=== PATIENT | female | born 1965 | race Caucasian/White ===

== ENCOUNTER 2018-10-21 15:54 | Observation (INO) | payer OTHER ==
--- NOTE | 2018-10-21 16:04 | PDOC ---
Rapid Medical Evaluation Chief Complaint: Pain, Acute Time Seen by Provider: 10/21/18 16:02 Medical Evaluation: Allergies Allergy/AdvReac Type Severity Reaction Status Date / Time No Known Allergies Allergy Verified 05/23/16 11:05 10/21/18 16:02 I have performed a brief in person evaluation of this patient. The patient presents with the CC of: abd pain HPI: Pt is a 53 YO female who states she has had abdominal pain x 1 month. Gastric band procedure in the past. PE: Skin: Clear Lungs: Clear Heart: RRR Abd: non tender MS: Moves all extremities without difficulty Neuro: Alert and oriented Psych: Appropriate affect I have ordered the following: abd protocol Pt will proceed to the main ED for further evaluation. Discharge Disposition - Diagnosis Abdominal pain Qualifiers: Abdominal location: generalized Qualified Code(s): R10.84 - Generalized abdominal pain - Referrals - Patient Instructions - Post Discharge Activity
[2018-10-21 16:52] LABS: BASO % 1.1 % (0-2.0); EOS % 2.4 % (0-4.5); HEMATOCRIT 33.8 % (32.4-45.2); HEMOGLOBIN 11.3 GM/dL (10.7-15.3); LYMPH % 27.6 % (8-40); MCHC 33.5 g/dl (32.0-36.0); MEAN CELL VOLUME 80.4 fl (80-96); MEAN PLT VOLUME 8.6 fl (7.5-11.1); MONO % 7.4 % (3.8-10.2); NEUT % 61.5 % (42.8-82.8); PLATELET COUNT 292 K/MM3 (134-434); RDW 13.9 % (11.6-15.6); WHITE BLOOD COUNT 9.4 K/mm3 (4.0-10.0)
[2018-10-21 17:21] LABS: URINE APPEARANCE SLCLOUDY; URINE BILIRUBIN NEGATIVE (<2.0 mg/dL); URINE COLOR DKYELLOW; URINE GLUCOSE (UA) NEGATIVE (NEGATIVE); URINE KETONE NEGATIVE (NEGATIVE); URINE LEUK ESTERASE 1+ (NEGATIVE); URINE NITRITE NEGATIVE (NEGATIVE); URINE PROTEIN NEGATIVE (NEGATIVE); URINE UROBILINOGEN NEGATIVE mg/dL (0.2-1.0)
[2018-10-21 17:26] LABS: EPI CELLS MODERATE /HPF (FEW); URINE BACTERIA RARE /hpf (NONE SEEN); URINE MUCUS RARE
[2018-10-21 17:39] LABS: ALBUMIN 3.8 g/dl (3.4-5.0); ALK PHOS 92 U/L (45-117); ANION GAP 8 MMOL/L (8-16); BILIRUBIN,TOTAL 0.2 mg/dL (0.2-1); BLOOD UREA NITROGEN 25 mg/dL (7-18); CALCIUM 8.9 mg/dL (8.5-10.1); CHLORIDE 106 mmol/L (98-107); CO2 25 mmol/L (21-32); CREATININE 0.8 mg/dL (0.55-1.3); GLUCOSE,RANDOM 80 mg/dL (74-106); LIPASE 550 U/L (73-393); POTASSIUM 4.3 mmol/L (3.5-5.1); SGOT/AST 24 U/L (15-37); SGPT/ALT 24 U/L (13-61); SODIUM 140 mmol/L (136-145); TOT PROT 7.9 g/dl (6.4-8.2)
--- NOTE | 2018-10-21 17:42 | PDOC ---
Attending Attestation - HPI HPI: 10/21/18 19:14 The patient is a 53 year old female with a significant PMH of HTN, HLD, and gastric band who presents to the emergency department with abdominal pain for the past month. Patient denies any exacerbating or alleviating factors. Patient admits to intermittent nausea but no vomiting. She also admits to decreased appetite and irregular bowel movements. Patient has been on meloxicam for the past three months. Patient had an ultrasound done outpatient recently which showed gallstones. The patient denies chest pain, shortness of breath, headache and dizziness. Denies fever, chills, vomit, diarrhea and constipation. Denies dysuria, frequency, urgency and hematuria. Allergies: NKA Past surgical history: None reported. Social history: No reported alcohol, drug or cigarette use. - Physicial Exam PE: 10/21/18 19:35 ADULT PHYSICAL EXAM Constitutional: Awake, alert, oriented. No acute distress. Cardiovascular: Regular rate. Regular rhythm. S1, S2 regular. Distal pulses are 2+ and symmetric. Pulmonary/Chest: No evidence of respiratory distress. Clear to auscultation bilaterally No wheezing, rales or rhonchi. Abdominal: Soft and non-distended. (+) Mild left upper quadrant and epigastric tenderness. Back: No CVA tenderness. Musculoskeletal: No edema. No cyanosis. No clubbing. Full range of motion in all extremities. Skin: Skin is warm and dry. No petechiae. No purpura. Neurological: Alert and oriented to person, place, and time. Cranial nerves II- XII are grossly intact. Psychiatric: Good eye contact. Normal interaction, affect and behavior. <Cristy Andersen - Last Filed: 10/21/18 19:34> - Resident Resident Name: Devin Low - ED Attending Attestation I have performed the following: I have examined & evaluated the patient, The case was reviewed & discussed with the resident, I agree w/resident's findings & plan, Exceptions are as noted - Medical Decision Making 10/21/18 17:42 I, Dr. Rachel Brwon, DO, attest that this document has been prepared under my direction and personally reviewed by me in its entirety. I further attest, that it accurately reflects all work, treatment, procedures and medical decision -making performed by me. 10/21/18 19:03 a/p: 53yo female with a 1 month hx of epigastric pain -assoc with nausea -outpt ultrasound showed gallstones -labs sent from [facility] concerning for elevated lipase -will send for CT abd/pelvis to eval for pancreatitis and gallstone pancreaititis -may need MRCP if +gallstone pancreatitis -will keep npo -ivf hydration running -zofran for nausea -will monitor and reassess 10/21/18 20:[address] 10/21/18 20:[address] Coon-recommends IVF hydration, npo, trend labs including lipase will see patient in the Am resident discussed the findings with the patient who is willing to stay for further eval 10/21/18 21:50 case discussed with [facility] who accepts pt to obs <Rachel Brown - Last Filed: 10/21/18 21:50> *DC/Admit/Observation/Transfer <Cristy Andersen - Last Filed: 10/21/18 19:34> - Discharge Dispostion Decision to Admit order: Yes <Rachel Brown - Last Filed: 10/21/18 21:50> Diagnosis at time of Disposition: Symptomatic cholelithiasis, Elevated lipase Abdominal pain Qualifiers: Abdominal location: generalized Qualified Code(s): R10.84 - Generalized abdominal pain - Discharge Dispostion Condition at time of disposition: Fair - Referrals Referrals: Stefany Kearney [Primary Care Provider] - - Patient Instructions - Post Discharge Activity
--- NOTE | 2018-10-21 17:50 | PDOC ---
History of Present Illness - General Chief Complaint: Pain, Acute Stated Complaint: ABD PAIN / NAUSEA Time Seen by Provider: 10/21/18 16:02 - History of Present Illness Initial Comments: 10/21/18 17:50 53 year old woman with a history of HTN, Thalassemia (type unknown) who presents with Past History - Past Medical History Allergies/Adverse Reactions: Allergies Allergy/AdvReac Type Severity Reaction Status Date / Time No Known Allergies Allergy Verified 05/23/16 11:05 Home Medications: Ambulatory Orders Nebivolol [Bystolic -] 5 mg PO DAILY 05/23/16 COPD: No HTN: Yes Hypercholesterolemia: Yes - Surgical History Gastric Stapling: Yes (gastric banding) - Immunization History Immunization Up to Date: No - Suicide/Smoking/Psychosocial Hx Smoking History: Never smoked Have you smoked in the past 12 months: No Information on smoking cessation initiated: No Hx Alcohol Use: No Drug/Substance Use Hx: No Substance Use Type: None *Physical Exam - Vital Signs Last Vital Signs Temp Pulse Resp BP Pulse Ox 98.2 F 64 16 167/88 99 10/21/18 16:03 10/21/18 16:03 10/21/18 16:03 10/21/18 16:03 10/21/18 16:03 Moderate Sedation - Procedure Monitoring Vital Signs: Procedure Monitoring Vital Signs Temperature 98.2 F 10/21/18 16:03 Pulse Rate 64 10/21/18 16:03 Respiratory Rate 16 10/21/18 16:03 Blood Pressure 167/88 10/21/18 16:03 O2 Sat by Pulse Oximetry (%) 99 10/21/18 16:03 ED Treatment Course - LABORATORY CBC & Chemistry Diagram: 10/21/18 16:37 10/21/18 16:38 - ADDITIONAL ORDERS Additional order review: Laboratory Results 10/21/18 10/21/18 17:09 16:38 Sodium 140 Potassium 4.3 Chloride 106 Carbon Dioxide 25 Anion Gap 8 BUN 25 H Creatinine 0.8 Creat Clearance w eGFR > 60 Random Glucose 80 Calcium 8.9 Total Bilirubin 0.2 AST 24 ALT 24 Alkaline Phosphatase 92 Total Protein 7.9 Albumin 3.8 Lipase 550 H Urine Color Dkyellow Urine Appearance Slcloudy Urine pH 6.0 Ur Specific [place] 1.027 Urine Protein Negative Urine Glucose (UA) Negative Urine Ketones Negative Urine Blood Negative Urine Nitrite Negative Urine Bilirubin Negative Urine Urobilinogen Negative Ur Leukocyte Esterase 1+ H Urine WBC (Auto) 9 Urine RBC (Auto) 4 Ur Epithelial Cells Moderate Urine Bacteria Rare Urine Mucus Rare 10/21/18 16:37 RBC 4.20 MCV 80.4 MCHC 33.5 RDW 13.9 MPV 8.6 Neutrophils % 61.5 Lymphocytes % 27.6 Monocytes % 7.4 Eosinophils % 2.4 Basophils % 1.1 D *DC/Admit/Observation/Transfer Diagnosis at time of Disposition: Abdominal pain Qualifiers: Abdominal location: generalized Qualified Code(s): R10.84 - Generalized abdominal pain - Discharge Dispostion Condition at time of disposition: Stable - Referrals Referrals: Stefany Kearney [Primary Care Provider] - - Patient Instructions - Post Discharge Activity
[2018-10-21] MEDS ORDERED: ONDANSETRON 4 MG/2 ML VIAL IVPUSH ONE (18:10)
[2018-10-21] MEDS ORDERED: SODIUM CHLORIDE 0.9% 1000 ML INFUS.BAG IV ONE ×2 (18:25→18:26)
--- NOTE | 2018-10-21 18:26 | PDOC ---
History of Present Illness - General Chief Complaint: Pain, Acute Stated Complaint: ABD PAIN / NAUSEA Time Seen by Provider: 10/21/18 16:02 History Source: Patient Exam Limitations: No Limitations - History of Present Illness Initial Comments: Patient is a 53 y/o F w/ PMHx HTN, HLD, bariatric surgery ~15y/a, p/w 1 month sharp abdominal pain radiating from the left costal margin to the left inguinal and suprapubic regions, relapsing and remitting with 8/10 severity at worst, no exacerbating or alleviating factors. Additionally has recently developed nausea. Dizzy spells starting today prompted ED visit. Reports recent use of meloxicam multiple times per week for several weeks for knee pain, and combining meloxicam with ibuprofen for particularly bad pain. She has been evaluated for these symptoms at urgent care, by her PMD, and by her GI. Reports undergoing US at urgent care but not knowing the result. Reports GI recommended CT scan but she has not followed up at this time. Endorses left-sided chest pain and SOB since onset of symptoms but is not currently experiencing these symptoms. No vomiting, no diarrhea, no constipation, no dysuria. NO RENDON, f/c. 10/21/18 18:11 10/21/18 18:27 Past History - Travel Traveled outside of the country in the last 30 days: No Close contact w/someone who was outside of country & ill: No - Past Medical History Allergies/Adverse Reactions: Allergies Allergy/AdvReac Type Severity Reaction Status Date / Time No Known Allergies Allergy Verified 05/23/16 11:05 Home Medications: Ambulatory Orders Nebivolol [Bystolic -] 5 mg PO DAILY 05/23/16 COPD: No HTN: Yes Hypercholesterolemia: Yes - Surgical History Gastric Stapling: Yes (gastric banding) - Immunization History Immunization Up to Date: No - Suicide/Smoking/Psychosocial Hx Smoking History: Never smoked Have you smoked in the past 12 months: No Information on smoking cessation initiated: No Hx Alcohol Use: No Drug/Substance Use Hx: No Substance Use Type: None Review of Systems - Review of Systems Comments:: As per HPI. 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, sensory systems w/o focal deficit Psych: normal mood, normal affect Skin: warm, dry, normal turgor 10/21/18 18:29 Moderate Sedation - Procedure Monitoring Vital Signs: Procedure Monitoring Vital Signs Temperature 98.2 F 10/21/18 16:03 Pulse Rate 64 10/21/18 16:03 Respiratory Rate 16 10/21/18 16:03 Blood Pressure 167/88 10/21/18 16:03 O2 Sat by Pulse Oximetry (%) 99 10/21/18 16:03 ED Treatment Course - LABORATORY CBC & Chemistry Diagram: 10/21/18 16:37 10/21/18 16:38 - ADDITIONAL ORDERS Additional order review: Laboratory Results 10/21/18 10/21/18 17:09 16:38 Sodium 140 Potassium 4.3 Chloride 106 Carbon Dioxide 25 Anion Gap 8 BUN 25 H Creatinine 0.8 Creat Clearance w eGFR > 60 Random Glucose 80 Calcium 8.9 Total Bilirubin 0.2 AST 24 ALT 24 Alkaline Phosphatase 92 Total Protein 7.9 Albumin 3.8 Lipase 550 H Urine Color Dkyellow Urine Appearance Slcloudy Urine pH 6.0 Ur Specific [place] 1.027 Urine Protein Negative Urine Glucose (UA) Negative Urine Ketones Negative Urine Blood Negative Urine Nitrite Negative Urine Bilirubin Negative Urine Urobilinogen Negative Ur Leukocyte Esterase 1+ H Urine WBC (Auto) 9 Urine RBC (Auto) 4 Ur Epithelial Cells Moderate Urine Bacteria Rare Urine Mucus Rare 10/21/18 16:37 RBC 4.20 MCV 80.4 MCHC 33.5 RDW 13.9 MPV 8.6 Neutrophils % 61.5 Lymphocytes % 27.6 Monocytes % 7.4 Eosinophils % 2.4 Basophils % 1.1 D Medical Decision Making - Medical Decision Making Initial labs notable for lipase elevated but <3x u/l/n. Pancreatitis 2/2 gallstones, HLD, and meloxicam use (rare side effect) is possible. Basic GI labs resulted at time of encounter. Ordering CT a/p w/ contrast and lipid panel. Giving Zofran. 10/21/18 18:47 CT a/p identifies s/p gastric banding, demonstrates cholelithiasis, no evidence of pancreatitis or other acute abdominopelvic pathology. 10/21/18 20:06 D/w Dr. Coon. Most likely diagnosis is symptomatic cholelithiasis. Will make NPO , maintain IVF, repeat AM labs including lipase. If lipase increases, Pt will need MRCP. Otherwise will be considered for CCY. To be admitted for med/surg observation. 10/21/18 20:57 D/w hospitalist. Will admit. 10/21/18 21:50 *DC/Admit/Observation/Transfer Diagnosis at time of Disposition: Abdominal pain Qualifiers: Abdominal location: generalized Qualified Code(s): R10.84 - Generalized abdominal pain - Discharge Dispostion Condition at time of disposition: Stable - Referrals Referrals: Stefany Kearney [Primary Care Provider] - - Patient Instructions - Post Discharge Activity
[2018-10-21] MEDS ORDERED: ONDANSETRON 4 MG/2 ML VIAL ONE (18:48)
[2018-10-21 19:07] LABS: CHOLESTEROL 242 mg/dL (50-200); HDL CHOLESTEROL 51 mg/dL (40-60); TRIGLYCERIDES 134 mg/dL (0-150)
[2018-10-21] MEDS ORDERED: LACTATED RINGERS SOLUTION 1,000 ML/1,000 ML INFUS.BAG IV SCH (21:00)
--- NOTE | 2018-10-21 22:13 | PN ---
Teaching Attending Note Name of Resident: Margaret Drummond ATTENDING PHYSICIAN STATEMENT I saw and evaluated the patient. I reviewed the resident's note and discussed the case with the resident. I agree with the resident's findings and plan as documented. SUBJECTIVE: Patient is a 53 year old woman with PMH of HTN, HLD, bariatric surgery about 15 years ago who presents with sharp abdominal pain for 1 month. Pain radiates from the left costal margin to the left inguinal and suprapubic regions, relapsing and remitting with 8/10 severity at worst. No obvious exacerbating or alleviating factors. Recently developed nausea and dizzy spells. Reports recent use of meloxicam multiple times per week for several weeks for knee pain, and combining meloxicam with ibuprofen for particularly bad pain. She has been evaluated for these symptoms at urgent care, by her PMD, and by her GI. Reports undergoing US at urgent care but not knowing the result. Reports GI recommended CT scan but she has not followed up at this time. Endorses left-sided chest pain and SOB since onset of symptoms but is not currently experiencing these symptoms. No vomiting, diarrhea, chills, headache or dysuria. OBJECTIVE: Alert Vital Signs Period Temp Pulse Resp BP Sys/Alfonso Pulse Ox Last 24 Hr 98.2 F 64 16 167/88 99 HEENT: No Jaundice, eye redness or discharge, PERRLA, EOMI. Normocephalic, atraumatic. External ears are normal and hearing is grossly intact. No nasal discharge. Neck: Supple, nontender. No palpable adenopathy or thyromegaly. No JVD Chest: Good effort. Clear to auscultation and percussion. Heart: Regular. No S3, rub or murmur Abdomen: Not distended, soft, tender left side of abdomen and suprapubic area; no HSM. No rebound or guarding. Normoactive bowel sounds. Ext: Peripheral pulses intact. No leg edema. Skin: Warm and dry. No petechiae, rash or ecchymosis. Neuro: Alert. Oriented x3. CN 2-12 grossly intact. Sensation grossly intact in all four extremities and DTR are symmetric. Current Medications Generic Name Dose Route Start Last Admin Trade Name Freq PRN Reason Stop Dose Admin Lactated Ringer's 1,000 ml in 1,000 mls @ 100 mls/hr 10/21/18 21:00 10/21/18 21:46 Lactated Ringers Solution IV 100 mls/hr ASDIR YOBANI Administration Home Medications Medication Instructions Recorded Nebivolol [Bystolic -] 5 mg PO DAILY 05/23/16 Abnormal Lab Results 10/21/18 10/21/18 10/21/18 16:38 17:09 18:44 BUN 25 H Cholesterol 242 H Total LDL Cholesterol 164 H Lipase 550 H Ur Leukocyte Esterase 1+ H ASSESSMENT AND PLAN: 1. Abdominal pain - May be due to gall stones noted on CT scan. Will repeat UA to rule out UTI. Trend lipase and get MRCP after consultation with GI. Continue IV fluids, keep her NPO and do pain control PRN. Surgery consulted. Needs dietary and intensified drug treatment for hyperlipidemia. 2. Obesity - Will provide patient all the necessary assistance, counseling and positive reinforcement to facilitate weight loss. Consult rooming house keeper. 3. Uncontrolled Hypertension - Will restart her home antihypertensive drugs and also craft a better regimen for her to ultimately attain normotension. Nonpharmacologic measures to control hypertension like weight loss, salt restriction and exercise discussed. 4. DVT prophylaxis - Lovenox 40 mg SQ q 24 hours. 5. Advance directives - Full code
--- NOTE | 2018-10-21 23:04 | HP ---
CHIEF COMPLAINT: epigastric abdominal pain PCP: Dr. Kearney HISTORY OF PRESENT ILLNESS: 53 y/o female with PMH of HTN, HLD, presents with a one month history of epigastric/left sided abdominal pain. She states that the pain stated on , it was no associated with any nausea/vomiting/diarrhea nor was it worse after certain foods. She saw her automatic i threading machine feeder Dr. Daly who started her on Hyoscyamine .375 daily and told her to let him know how she was feeling. She was still having pain so she went to an urgent care who di an ultrasound which showed gallstones and they did labs which showed a lipase of 550 and she began feeling nauseous today so she came in. of note, she did have a stomach virus 2 weeks ago whihc lasted 2 weeks. she denies any recent travel nor has any sick contacts at home. ER course was notable for: (1) vital wnl (2) cbc/cmp wnl; lipase 550 (3) ab/pelvis CT showing cholelithiasis no cholecystitis or pancreatitis Recent Travel: denies PAST MEDICAL HISTORY: see above PAST SURGICAL HISTORY: gastric band surgery (15 years ago) Social History: Smoking:former smoker quit 27 years ago Alcohol:denies Drugs: denies Family History: HTN on both sides Allergies No Known Allergies Allergy (Verified 05/23/16 11:05) HOME MEDICATIONS: Home Medications Medication Instructions Recorded Nebivolol [Bystolic -] 5 mg PO DAILY 05/23/16 Pravastatin Sodium [Pravachol (Nf)] 40 mg PO HS 10/21/18 REVIEW OF SYSTEMS CONSTITUTIONAL: Absent: fever, chills, diaphoresis, generalized weakness, malaise, loss of appetite, weight change HEENT: Absent: rhinorrhea, nasal congestion, throat pain, throat swelling, difficulty swallowing, mouth swelling, ear pain, eye pain, visual changes CARDIOVASCULAR: Absent: chest pain, syncope, palpitations, irregular heart rate, lightheadedness , peripheral edema RESPIRATORY: Absent: cough, shortness of breath, dyspnea with exertion, orthopnea, wheezing, stridor, hemoptysis GASTROINTESTINAL: Present:abdominal pain, nausea, Absent: , diarrhea, constipation, melena, hematochezia GENITOURINARY: Absent: dysuria, frequency, urgency, hesitancy, hematuria, flank pain, genital pain MUSCULOSKELETAL: Absent: myalgia, arthralgia, joint swelling, back pain, neck pain SKIN: Absent: rash, itching, pallor HEMATOLOGIC/IMMUNOLOGIC: Absent: easy bleeding, easy bruising, lymphadenopathy, frequent infections ENDOCRINE: Absent: unexplained weight gain, unexplained weight loss, heat intolerance, cold intolerance NEUROLOGIC: Absent: headache, focal weakness or paresthesias, dizziness, unsteady gait, seizure, mental status changes, bladder or bowel incontinence PSYCHIATRIC: Absent: anxiety, depression, suicidal or homicidal ideation, hallucinations. PHYSICAL EXAMINATION Vital Signs - 24 hr 10/21/18 16:03 Temperature 98.2 F Pulse Rate 64 Respiratory 16 Rate Blood Pressure 167/88 O2 Sat by Pulse 99 Oximetry (%) GENERAL: Awake, alert, and fully oriented, in no acute distress EYES: EOMI; PEERLA; no scleral icterus NECK:no JVD, no lymphadenopathy. LUNGS: CTA B/L; no rales, rhonchi or wheezing HEART: Regular rate and rhythm, normal S1 and S2 without murmur, rub or gallop. ABDOMEN: Soft, +left-sided/suprapubic tenderness; -murphys sign; + BS in all 4 quadrants MUSCULOSKELETAL: Normal range of motion at all joints. No bony deformities or tenderness. No CVA tenderness. EXTREMITIES; warm; well-perfused, no clubbing/cyanosis or edema. NEUROLOGICAL: Cranial nerves II-XII intact. Normal speech. Normal gait. PSYCHIATRIC: Cooperative. Good eye contact. Appropriate mood and affect. SKIN: Warm, dry, normal turgor, no rashes or lesions noted, normal capillary refill. Laboratory Results - last 24 hr 10/21/18 10/21/18 10/21/18 16:37 16:38 17:09 WBC 9.4 RBC 4.20 Hgb 11.3 Hct 33.8 MCV 80.4 MCH 27.0 MCHC 33.5 RDW 13.9 Plt Count 292 MPV 8.6 Absolute Neuts (auto) 5.8 Neutrophils % 61.5 Lymphocytes % 27.6 Monocytes % 7.4 Eosinophils % 2.4 Basophils % 1.1 D Nucleated RBC % 0 Sodium 140 Potassium 4.3 Chloride 106 Carbon Dioxide 25 Anion Gap 8 BUN 25 H Creatinine 0.8 Creat Clearance w eGFR > 60 Random Glucose 80 Calcium 8.9 Total Bilirubin 0.2 AST 24 ALT 24 Alkaline Phosphatase 92 Total Protein 7.9 Albumin 3.8 Triglycerides Cholesterol Total LDL Cholesterol HDL Cholesterol Lipase 550 H Urine Color Dkyellow Urine Appearance Slcloudy Urine pH 6.0 Ur Specific [place] 1.027 Urine Protein Negative Urine Glucose (UA) Negative Urine Ketones Negative Urine Blood Negative Urine Nitrite Negative Urine Bilirubin Negative Urine Urobilinogen Negative Ur Leukocyte Esterase 1+ H Urine WBC (Auto) 9 Urine RBC (Auto) 4 Ur Epithelial Cells Moderate Urine Bacteria Rare Urine Mucus Rare 10/21/18 18:44 WBC RBC Hgb Hct MCV MCH MCHC RDW Plt Count MPV Absolute Neuts (auto) Neutrophils % Lymphocytes % Monocytes % Eosinophils % Basophils % Nucleated RBC % Sodium Potassium Chloride Carbon Dioxide Anion Gap BUN Creatinine Creat Clearance w eGFR Random Glucose Calcium Total Bilirubin AST ALT Alkaline Phosphatase Total Protein Albumin Triglycerides 134 Cholesterol 242 H Total LDL Cholesterol 164 H HDL Cholesterol 51 Lipase Urine Color Urine Appearance Urine pH Ur Specific [place] Urine Protein Urine Glucose (UA) Urine Ketones Urine Blood Urine Nitrite Urine Bilirubin Urine Urobilinogen Ur Leukocyte Esterase Urine WBC (Auto) Urine RBC (Auto) Ur Epithelial Cells Urine Bacteria Urine Mucus ASSESSMENT/PLAN: 53 y/o female with PMH of HTN, HLD, gastric band surgery 15 years ago who presents with a 1 month history of worsening epigastric/suprapubic/abdominal pain found to have cholelithiasis on ultrasound # Abdominal pain CT showing no evidence of pancreatitis or acute cholecystitis - showing evidence of cholelithiassis -trend lipase; repeat in AM -Dr Coon consulted; IVF, NPO will see patient in AM -MRCP ordered -GI consulted -given patients suprapubic tenderness; repeat U/A and send Cx #HTN -c/w bystolic 5mg -may consider adding another regimen -nurses' association counselor patients on importance of diet/exercise (low sodium etc) #HLD -c/w pravastatin 40mg F/E/N LR @100mls/hr monitor electrolytes NPO for now Problem List - Problem (1) Abdominal pain Code(s): R10.9 - UNSPECIFIED ABDOMINAL PAIN Qualifiers: Abdominal location: generalized Qualified Code(s): R10.84 - Generalized abdominal pain (2) Elevated lipase Code(s): R74.8 - ABNORMAL LEVELS OF OTHER SERUM ENZYMES (3) Symptomatic cholelithiasis Code(s): K80.20 - CALCULUS OF GALLBLADDER W/O CHOLECYSTITIS W/O OBSTRUCTION Visit type - Emergency Visit Emergency Visit: Yes ED Registration Date: 10/21/18 Care time: The patient presented to the Emergency Department on the above date and was hospitalized for further evaluation of their emergent condition. - New Patient This patient is new to me today: Yes Date on this admission: 10/21/18 - Critical Care Critical Care patient: No
[2018-10-22 03:06] VITALS: BMI 40.7
[2018-10-22] MEDS: ACETAMINOPHEN 325 MG TABLET (FP) PO PRN ×2 (03:24→15:04)
[2018-10-22 04:43] LABS: URINE APPEARANCE CLEAR; URINE BILIRUBIN NEGATIVE (<2.0 mg/dL); URINE COLOR STRAW; URINE GLUCOSE (UA) NEGATIVE (NEGATIVE); URINE KETONE NEGATIVE (NEGATIVE); URINE LEUK ESTERASE NEGATIVE (NEGATIVE); URINE NITRITE NEGATIVE (NEGATIVE); URINE PROTEIN NEGATIVE (NEGATIVE); URINE UROBILINOGEN NEGATIVE mg/dL (0.2-1.0)
[2018-10-22 07:23] LABS: BASO % 0.3 % (0-2.0); EOS % 3.9 % (0-4.5); HEMATOCRIT 31.3 % (32.4-45.2); HEMOGLOBIN 10.4 GM/dL (10.7-15.3); LYMPH % 25.3 % (8-40); MCH 26.4 pg (25.7-33.7); MCHC 33.2 g/dl (32.0-36.0); MEAN CELL VOLUME 79.5 fl (80-96); MEAN PLT VOLUME 8.5 fl (7.5-11.1); MONO % 6.6 % (3.8-10.2); NEUT % 63.9 % (42.8-82.8); PLATELET COUNT 251 K/MM3 (134-434); RBC 3.93 M/mm3 (3.60-5.2); RDW 13.8 % (11.6-15.6); WHITE BLOOD COUNT 7.6 K/mm3 (4.0-10.0)
--- NOTE | 2018-10-22 08:52 | CON.GI ---
Consult Consult Specialty:: GI Referred by:: Hospitalist Service Reason for Consultation:: Abdominal pain - History of Present Illness Chief Complaint: "I have pain on my left side when I move" History of Present Illness: 53F admitted for evaluation of left sided upper abdominal pain. She states that the pain has been occurring since 09/21/18. It is exacerbated by movement , radiates from the LUQ to left lower abdomen and is not related to meals. She denies associated vomiting / unintentional weight loss, change in bowel habits, melena, rectal bleeding, fevers/chills. The pain persisted and she felt dizzy so went to urgent care. She states that she was tld of gallstones and was sent to the hospital. Admission CT scan with IV contrast revealed cholelithiasis without acute pathology. She was recently seen bty her mold tooler Dr. Juvenal Daly in [place] who gave her hyosciamine. This did not help. Pain persists. She believes that she had an upper endoscopy 5-6 years ago that was"OK". She also states having had a colonoscopy last year that was normal. There is no family history of colorectal cancer or other GI malignancy. 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 History of Recent Travel: No Home Medications - Allergies Allergies/Adverse Reactions: Allergies Allergy/AdvReac Type Severity Reaction Status Date / Time No Known Allergies Allergy Verified 05/23/16 11:05 - Home Medications Home Medications: Ambulatory Orders Nebivolol [Bystolic -] 5 mg PO DAILY 05/23/16 Pravastatin Sodium [Pravachol (Nf)] 40 mg PO HS 10/21/18 Family Disease History - Family Disease History Family Disease History: Other: Father (Alive: HTN/CVA), Mother (Alive: HTN), Sister (3, healthy), Son (1, healthy), Daughter (1, healthy) Other Family History: No family history of colorectal cancer or other GI malignancy Review of Systems - Review of Systems Constitutional: denies: Chills, Fever, Unintentional Wgt. Loss Cardiovascular: denies: Chest Pain, Shortness of Breath Gastrointestinal: reports: Abdominal Pain, Nausea. denies: Bloating, Constipation, Diarrhea, Dysphagia, Indigestion, Melena, Rectal Bleeding, Vomiting Musculoskeletal: denies: Back Pain Physical Exam-GI Vital Signs: Vital Signs Temperature 97.9 F 10/22/18 07:00 Pulse Rate 62 10/22/18 07:00 Respiratory Rate 18 10/22/18 07:00 Blood Pressure 118/61 10/22/18 07:00 O2 Sat by Pulse Oximetry (%) 98 10/22/18 01:42 Constitutional: Yes: Calm Eyes: No: Sclera Icterus Cardiovascular: Yes: Regular Rate and Rhythm. No: Murmur Respiratory: Yes: CTA Bilaterally Gastrointestinal Inspection: Yes: Scars (trochar scars with palpable lap band port in mid upper abdomen). No: Distention ...Auscultate: Yes: Normoactive Bowel Sounds ...Palpate: Yes: Tenderness (LUQ>epigastric). No: Guarding, Hepatomegaly, Splenomegaly, Tenderness, Rebound ...Percussion: No: Tympanitic ...Rectal Exam: Yes: Other (Emergency Planner present: No external lesions, no mases, formed light brown stool in rectal vault, guaiac negative.) Edema: No (No LE edema) Neurological: Yes: Alert Labs: CBC, BMP 10/22/18 06:30 10/21/18 16:38 Laboratory Tests 10/21/18 16:38 Lipase 550 H Imaging - Results Cat Scan: Report Reviewed Problem List - Problems (1) Abdominal pain Assessment/Plan: Pain not typical of cholecystitis or pancreatitis and lipase of 550 not diagnostic of pancreatitis. Given description of pain, ? if the pain is somatic / musculoskeletal in nature as opposed to visceral. There was mild epigastric TTP noted on my exam. To exclude Lap Band Complication such as lap band erosion into the gastric wall , along with alternate pathologies such as PUD, gastritis, we discussed upper endoscopy for further intraluminal evaluation. We discussed potential risks of the procedure like but not limited to bleeding, perforation requiring surgery to repair, infection and sedation medication effects all of which could be potentially life threatening. She has agreed to the procedure For now: NPO IV Hydration Code(s): R10.9 - UNSPECIFIED ABDOMINAL PAIN Qualifiers: Abdominal location: generalized Qualified Code(s): R10.84 - Generalized abdominal pain
[2018-10-22 09:52] LABS: ALBUMIN 3.2 g/dl (3.4-5.0); ALK PHOS 76 U/L (45-117); ANION GAP 7 MMOL/L (8-16); BILIRUBIN,TOTAL 0.5 mg/dL (0.2-1); BLOOD UREA NITROGEN 13 mg/dL (7-18); CALCIUM 8.4 mg/dL (8.5-10.1); CHLORIDE 110 mmol/L (98-107); CO2 26 mmol/L (21-32); CREATININE 0.7 mg/dL (0.55-1.3); GLUCOSE,RANDOM 77 mg/dL (74-106); LIPASE 253 U/L (73-393); MAGNESIUM 2.2 mg/dL (1.8-2.4); PHOSPHOROUS 3.5 mg/dL (2.5-4.9); POTASSIUM 4.2 mmol/L (3.5-5.1); SGOT/AST 16 U/L (15-37); SGPT/ALT 22 U/L (13-61); SODIUM 143 mmol/L (136-145); TOT PROT 6.7 g/dl (6.4-8.2)
[2018-10-22] MEDS: ENOXAPARIN NA (PORCINE) 40 MG/0.4 ML DISP.SYRIN SQ SCH (10:34)
--- NOTE | 2018-10-22 13:48 | PN ---
Progress Note (short form) - Note Progress Note: EGD complete. Report placed in procedural section of physical chart and will be scanned into [employer]. Problem List - Problems (1) Abdominal pain Code(s): R10.9 - UNSPECIFIED ABDOMINAL PAIN Qualifiers: Abdominal location: generalized Qualified Code(s): R10.84 - Generalized abdominal pain
--- NOTE | 2018-10-22 14:16 | EKG ---
Test Reason : Blood Pressure : / mmHG Vent. Rate : 070 BPM Atrial Rate : 070 BPM P-R Int : 158 ms QRS Dur : 088 ms QT Int : 376 ms P-R-T Axes : 049 059 034 degrees QTc Int : 406 ms NORMAL SINUS RHYTHM NORMAL ECG WHEN COMPARED WITH ECG OF 30-MAR-2018 16:32, NO SIGNIFICANT CHANGE WAS FOUND Confirmed by RICKEY OHARA MD ([id number]) on 10/22/2018 2:15:53 PM Referred By: Confirmed By:RICKEY OHARA MD
[2018-10-22] MEDS ORDERED: ACETAMINOPHEN 325 MG TABLET (FP) PO ONE (15:08)
[2018-10-22] MEDS: NEBIVOLOL 5 MG TABLET (FP) PO SCH (15:34)
[2018-10-22] MEDS ORDERED: LACTATED RINGERS SOLUTION 1,000 ML/1,000 ML INFUS.BAG IV SCH (15:45)
--- NOTE | 2018-10-22 15:48 | PN ---
Physical Exam: SUBJECTIVE: Patient seen and examined at bedside this morning. Patient is a 53 year old female with past medical history of HTN and HLD, presented with intermittent episodes of epigastric/LUQ pain for 1 month. Patient experienced nausea and dizziness yesterday and decided to go to the ED. Last New Year's [place], patient experienced severe suprapubic, LLQ and LUQ pain that she went to the urgent care where ultrasound was done and she was noted to have gallstones. Patient followed up with her GI doctor, and started her on Hyoscyamine. Today patient still reports LUQ pain. Denies nausea, vomiting, fever, chills, headache, dizziness, chest pain, SOB, diarrhea, constipation, urinary symptoms. OBJECTIVE: Vital Signs Temperature 98.1 F 10/22/18 15:36 Pulse Rate 67 10/22/18 15:36 Respiratory Rate 18 10/22/18 15:36 Blood Pressure 145/67 10/22/18 15:36 O2 Sat by Pulse Oximetry (%) 100 10/22/18 15:38 GENERAL: The patient is awake, alert, and fully oriented, in no acute distress. HEAD: Normal with no signs of trauma. EYES: PERRLA, EOMI, sclera anicteric, conjunctiva clear. ENT: Ears normal, nares patent, oropharynx clear without exudates, moist mucous membranes. NECK: Trachea midline, full range of motion, supple. LUNGS: Breath sounds equal, clear to auscultation bilaterally. HEART: Regular rate and rhythm, S1, S2 without murmur, rub or gallop. ABDOMEN: Soft, +epigastric/LUQ tenderness, nondistended, normoactive bowel sounds, no guarding, no rebound, no hepatosplenomegaly, no masses. EXTREMITIES: 2+ pulses, warm, well-perfused, no edema. NEUROLOGICAL: Cranial nerves II through XII grossly intact. Normal speech, gait not observed. PSYCH: Normal mood, normal affect. SKIN: Warm, dry, normal turgor, no rashes or lesions noted Laboratory Results - last 24 hr 10/21/18 10/21/18 10/21/18 16:37 16:38 17:09 WBC 9.4 RBC 4.20 Hgb 11.3 Hct 33.8 MCV 80.4 MCH 27.0 MCHC 33.5 RDW 13.9 Plt Count 292 MPV 8.6 Absolute Neuts (auto) 5.8 Neutrophils % 61.5 Lymphocytes % 27.6 Monocytes % 7.4 Eosinophils % 2.4 Basophils % 1.1 D Nucleated RBC % 0 Sodium 140 Potassium 4.3 Chloride 106 Carbon Dioxide 25 Anion Gap 8 BUN 25 H Creatinine 0.8 Creat Clearance w eGFR > 60 Random Glucose 80 Calcium 8.9 Phosphorus Magnesium Total Bilirubin 0.2 AST 24 ALT 24 Alkaline Phosphatase 92 Total Protein 7.9 Albumin 3.8 Triglycerides Cholesterol Total LDL Cholesterol HDL Cholesterol Lipase 550 H Urine Color Dkyellow Urine Appearance Slcloudy Urine pH 6.0 Ur Specific [place] 1.027 Urine Protein Negative Urine Glucose (UA) Negative Urine Ketones Negative Urine Blood Negative Urine Nitrite Negative Urine Bilirubin Negative Urine Urobilinogen Negative Ur Leukocyte Esterase 1+ H Urine WBC (Auto) 9 Urine RBC (Auto) 4 Ur Epithelial Cells Moderate Urine Bacteria Rare Urine Mucus Rare Urine HCG, Qual 10/21/18 10/22/18 10/22/18 18:44 04:25 06:30 WBC 7.6 RBC 3.93 Hgb 10.4 L Hct 31.3 L MCV 79.5 L MCH 26.4 MCHC 33.2 RDW 13.8 Plt Count 251 MPV 8.5 Absolute Neuts (auto) 4.8 Neutrophils % 63.9 Lymphocytes % 25.3 Monocytes % 6.6 Eosinophils % 3.9 Basophils % 0.3 Nucleated RBC % 0 Sodium Potassium Chloride Carbon Dioxide Anion Gap BUN Creatinine Creat Clearance w eGFR Random Glucose Calcium Phosphorus Magnesium Total Bilirubin AST ALT Alkaline Phosphatase Total Protein Albumin Triglycerides 134 Cholesterol 242 H Total LDL Cholesterol 164 H HDL Cholesterol 51 Lipase Urine Color Straw Urine Appearance Clear Urine pH 7.0 Ur Specific [place] 1.009 L Urine Protein Negative Urine Glucose (UA) Negative Urine Ketones Negative Urine Blood Negative Urine Nitrite Negative Urine Bilirubin Negative Urine Urobilinogen Negative Ur Leukocyte Esterase Negative Urine WBC (Auto) Urine RBC (Auto) Ur Epithelial Cells Urine Bacteria Urine Mucus Urine HCG, Qual 10/22/18 10/22/18 06:30 11:25 WBC RBC Hgb Hct MCV MCH MCHC RDW Plt Count MPV Absolute Neuts (auto) Neutrophils % Lymphocytes % Monocytes % Eosinophils % Basophils % Nucleated RBC % Sodium 143 Potassium 4.2 Chloride 110 H Carbon Dioxide 26 Anion Gap 7 L BUN 13 Creatinine 0.7 Creat Clearance w eGFR > 60 Random Glucose 77 Calcium 8.4 L Phosphorus 3.5 Magnesium 2.2 Total Bilirubin 0.5 AST 16 ALT 22 Alkaline Phosphatase 76 Total Protein 6.7 Albumin 3.2 L Triglycerides Cholesterol Total LDL Cholesterol HDL Cholesterol Lipase 253 Urine Color Urine Appearance Urine pH Ur Specific [place] Urine Protein Urine Glucose (UA) Urine Ketones Urine Blood Urine Nitrite Urine Bilirubin Urine Urobilinogen Ur Leukocyte Esterase Urine WBC (Auto) Urine RBC (Auto) Ur Epithelial Cells Urine Bacteria Urine Mucus Urine HCG, Qual Negative Active Medications Generic Name Dose Route Start Last Admin Trade Name Freq PRN Reason Stop Dose Admin Acetaminophen 650 mg 10/22/18 03:15 10/22/18 15:04 Tylenol - PO 650 mg Q4H PRN Administration PAIN LEVEL 1-5 Atorvastatin Calcium 10 mg 10/22/18 22:00 Lipitor - PO HS YOBANI Enoxaparin Sodium 40 mg 10/22/18 10:00 10/22/18 10:34 Lovenox - SQ Not Given DAILY YOBANI Lactated Ringer's 1,000 ml in 1,000 mls @ 75 mls/hr 10/22/18 15:45 Lactated Ringers Solution IV ASDIR YOBANI Nebivolol 5 mg 10/22/18 10:00 10/22/18 15:34 Bystolic - PO 5 mg DAILY YOBANI Administration ASSESSMENT/PLAN: Patient is a 53 year old female with past medical history of HTN and HLD, presented with intermittent episodes of epigastric/LUQ pain for 1 month. #Abdominal pain -CT AP: Cholelithiasis. No pancreatitis or acute pathology within abdomen/ pelvis. -GI (Dr. Feliciano) consulted. Recommendations appreciated. -EGD done for further intraluminal evaluation: -Esophagus, Stomach and duodenal mucosa appeared normal. Biopsy done. -Avoid NSAIDs for 3 days. -Follow-up with bariatric surgeon. -Advance diet. -Surgery (Dr. Coon) consulted. -Lipase trended down 550 --> 253. #Hypertension -Continue home Bystolic 5mg daily. -will continue to monitor BP. #Hyperlipidemia -Continue Pravastatin 40mg daily. -Lipid panel: TG 134, Chol 242, LDL 164, HDL 51 #FEN -IV LR @100cc/hr -Electrolytes wnl, routine bmp monitoring -Sodium/Cholesterol restricted diet. #Prophylaxis -Lovenox 40mg sq daily. #Disposition -full code -med surg Visit type - Emergency Visit Emergency Visit: Yes ED Registration Date: 10/21/18 Care time: The patient presented to the Emergency Department on the above date and was hospitalized for further evaluation of their emergent condition. - New Patient This patient is new to me today: Yes Date on this admission: 10/22/18 - Critical Care Critical Care patient: No
--- NOTE | 2018-10-22 18:12 | PN ---
Teaching Attending Note Name of Resident: Kassy Lindo ATTENDING PHYSICIAN STATEMENT I saw and evaluated the patient. I reviewed the resident's note and discussed the case with the resident. I agree with the resident's findings and plan as documented. SUBJECTIVE: Patient is comfortable with no acute distress. OBJECTIVE: Vital Signs Temperature 98.5 F 10/22/18 17:41 Pulse Rate 65 10/22/18 17:41 Respiratory Rate 18 10/22/18 17:41 Blood Pressure 142/69 10/22/18 17:41 O2 Sat by Pulse Oximetry (%) 100 10/22/18 15:38 GENERAL: The patient is awake, alert, and fully oriented, in no acute distress. HEAD: Normal with no signs of trauma. EYES: PERRLA, EOMI, sclera anicteric, conjunctiva clear. ENT: Ears normal, nares patent, oropharynx clear without exudates, moist mucous membranes. NECK: Trachea midline, full range of motion, supple. LUNGS: Breath sounds equal, clear to auscultation bilaterally. HEART: Regular rate and rhythm, S1, S2 without murmur, rub or gallop. ABDOMEN: Soft, +epigastric/LUQ tenderness, nondistended, normoactive bowel sounds, no masses appreciated. EXTREMITIES: 2+ pulses, warm, well-perfused, no edema. NEUROLOGICAL: Cranial nerves II through XII grossly intact. Normal speech, gait not observed. PSYCH: Normal mood, normal affect. SKIN: Warm, dry, normal turgor, no rashes or lesions noted CBCD WBC 7.6 K/mm3 (4.0-10.0) 10/22/18 06:30 RBC 3.93 M/mm3 (3.60-5.2) 10/22/18 06:30 Hgb 10.4 GM/dL (10.7-15.3) L 10/22/18 06:30 Hct 31.3 % (32.4-45.2) L 10/22/18 06:30 MCV 79.5 fl (80-96) L 10/22/18 06:30 MCHC 33.2 g/dl (32.0-36.0) 10/22/18 06:30 RDW 13.8 % (11.6-15.6) 10/22/18 06:30 Plt Count 251 K/MM3 (134-434) 10/22/18 06:30 MPV 8.5 fl (7.5-11.1) 10/22/18 06:30 CMP Sodium 143 mmol/L (136-145) 10/22/18 06:30 Potassium 4.2 mmol/L (3.5-5.1) 10/22/18 06:30 Chloride 110 mmol/L (98-107) H 10/22/18 06:30 Carbon Dioxide 26 mmol/L (21-32) 10/22/18 06:30 Anion Gap 7 MMOL/L (8-16) L 10/22/18 06:30 BUN 13 mg/dL (7-18) 10/22/18 06:30 Creatinine 0.7 mg/dL (0.55-1.3) 10/22/18 06:30 Creat Clearance w eGFR > 60 (>60) 10/22/18 06:30 Random Glucose 77 mg/dL (74-106) 10/22/18 06:30 Calcium 8.4 mg/dL (8.5-10.1) L 10/22/18 06:30 Total Bilirubin 0.5 mg/dL (0.2-1) 10/22/18 06:30 AST 16 U/L (15-37) 10/22/18 06:30 ALT 22 U/L (13-61) 10/22/18 06:30 Alkaline Phosphatase 76 U/L (45-117) 10/22/18 06:30 Total Protein 6.7 g/dl (6.4-8.2) 10/22/18 06:30 Albumin 3.2 g/dl (3.4-5.0) L 10/22/18 06:30 Current Medications Generic Name Dose Route Start Last Admin Trade Name Freq PRN Reason Stop Dose Admin Acetaminophen 650 mg 10/22/18 15:49 Tylenol - PO Q6H PRN PAIN OR FEVER Atorvastatin Calcium 10 mg 10/22/18 22:00 Lipitor - PO HS YOBANI Enoxaparin Sodium 40 mg 10/22/18 10:00 10/22/18 10:34 Lovenox - SQ Not Given DAILY YOBANI Lactated Ringer's 1,000 ml in 1,000 mls @ 100 mls/hr 10/22/18 16:38 Lactated Ringers Solution IV ASDIR YOBANI Nebivolol 5 mg 10/22/18 10:00 10/22/18 15:34 Bystolic - PO 5 mg DAILY [facility] Administration Home Medications Medication Instructions Recorded Nebivolol [Bystolic -] 5 mg PO DAILY 05/23/16 Pravastatin Sodium [Pravachol (Nf)] 40 mg PO HS 10/21/18 CT AP: Cholelithiasis. No pancreatitis or acute pathology within abdomen/pelvis. ASSESSMENT AND PLAN: Patient is a 53 year old female with PMHx of HTN and HLD, presented with intermittent episodes of epigastric/LUQ pain x 1 month. #Abdominal pain: s/p EGD done for further intraluminal evaluation, Esophagus, Stomach and duodenal mucosa appeared normal. Biopsy pending. GI (Dr. Feliciano) consulted. Recommendations appreciated. Avoid NSAIDs for 3 days. Surgery (Dr. Coon) consulted. Lipase trended down 550 --> 253. #Hypertension continue Bystolic 5mg daily. monitor BP #Hyperlipidemia: continue Pravastatin 40mg daily. DVt px: Lovenox 40mg sq
[2018-10-22] MEDS ORDERED: ACETAMINOPHEN/CAFFEINE/BUTALBITAL 1 TAB PO ONE ×2 (18:35→19:00)
[2018-10-22] MEDS: LACTATED RINGERS SOLUTION 1,000 ML/1,000 ML INFUS.BAG IV SCH ×2 (18:56→22:54)
--- NOTE | 2018-10-22 19:01 | CONSULT ---
Consult Consult Specialty:: General Surgery Referred by:: Rachel Brown Reason for Consultation:: elevated lipase, epigastric and LUQ pain - History of Present Illness Chief Complaint: left-sided abdominal pain History of Present Illness: 53yo obese F with HTN, HLD, thalassemia, s/p lap band 15 yrs ago with no followup in recent years, began having lower abdominal pain about a month ago. She initially was diagnosed with ovarian cyst issues, and saw INVENTORY CONTROL MANAGER, who did not think her pain was related to a INVENTORY CONTROL MANAGER source. She reports generally daily BMs, though sometimes a little hard to get out, except less in the last 3 days and none yesterday. No urinary symptoms. She does report some nausea with the pain, which then migrated to mainly the left abdomen, more upper, and also in the epigastric area. She then saw GI mid-September, who gave her medicine "to relax her intestines," and at first she thought it might be helping, but it really didn't. The pain comes and goes without provocation, and a few days ago, it was so bad she could barely walk. She went to her PMD, who sent her to urgent care, where she was told she had gallstones, and sent to ER here. CT here revealed no acute pathology, but did confirm gallstones, with no inflammatory changes around gallbladder or pancreas. Lipase was initially elevated, but is normal today. WBC is normal. She is afebrile. Surgery was asked to evaluate. GI saw patient earlier today, and took her for upper endoscopy, which showed no apparent abnormalities attributable to the band, normal mucosa, and biopsies were sent for H. pylori. She is seen and examined in bed, with family present. She reports the pain was present shortly ago, though not as bad as before. She sometimes uses Meloxicam at home (~3x weekly) for knee pain. She is getting Tylenol here, but is not sure it is working very well. She reports normal colonoscopy last year, but has not seen her bariatric surgeon in many years. She also states they never were able to fill the band properly, because they had trouble finding the port. Her diet is fairly normal and regular, though she does say there are some things she can't eat much of because of the band (rice) . She was restarted on diet after the scope today, and is tolerating solid food. - History Source History Provided By: Patient Limitations to Obtaining History: No Limitations - Past Medical History Cardio/Vascular: Yes: HTN, Hyperlipdemia Gastrointestinal: Yes: Other (morbid obesity) Hepatobiliary: Yes: Cholelithiasis ...: No Heme/Onc: Yes: Anemia (thalassemia) - Past Surgical History Past Surgical History: Yes: Bariatric Surgery (lap band 15 yrs ago at [facility]), Upper Endoscopy - Alcohol/Substance Use Hx Alcohol Use: No History of Substance Use: reports: None - Smoking History Smoking history: Former smoker (5 pk-yr history) Have you smoked in the past 12 months: No If you are a former smoker, when did you quit?: 27 yrs ago - Social History Usual Living Arrangement: With Child ADL: Independent Occupation: Support [employer] History of Recent Travel: No Home Medications - Allergies Allergies/Adverse Reactions: Allergies Allergy/AdvReac Type Severity Reaction Status Date / Time No Known Allergies Allergy Verified 05/23/16 11:05 - Home Medications Home Medications: Ambulatory Orders Nebivolol [Bystolic -] 5 mg PO DAILY 05/23/16 Pravastatin Sodium [Pravachol (Nf)] 40 mg PO HS 10/21/18 Family Disease History - Family Disease History Family Disease History: Other: Father (Alive: HTN/CVA), Mother (Alive: HTN), Sister (3, healthy), Son (1, healthy), Daughter (1, healthy) Other Family History: No family history of colorectal cancer or other GI malignancy Review of Systems - Review of Systems Constitutional: denies: Chills, Fever Eyes: denies: Blurred Vision, Recent Change in Vision HENT: denies: Difficult Swallowing, Throat Pain Neck: denies: Swollen Glands, Tenderness Cardiovascular: denies: Chest Pain, Palpitations Respiratory: denies: Cough, SOB Gastrointestinal: reports: Abdominal Pain (with hpi), Constipation, Nausea ( with hpi). denies: Diarrhea, Vomiting Genitourinary: denies: Burning, Dysuria Musculoskeletal: reports: Joint Pain (knees). denies: Back Pain Integumentary: denies: Change in Color, Rash Neurological: denies: Dizziness, Headache Physical Exam Vital Signs: Vital Signs Temperature 98.5 F 10/22/18 17:41 Pulse Rate 65 10/22/18 17:41 Respiratory Rate 18 10/22/18 17:41 Blood Pressure 142/69 10/22/18 17:41 O2 Sat by Pulse Oximetry (%) 100 10/22/18 15:38 Constitutional: Yes: No Distress, Calm, Obese Eyes: Yes: Conjunctiva Clear, EOM Intact HENT: Yes: Atraumatic, Normocephalic Neck: Yes: Supple, Trachea Midline Cardiovascular: Yes: Regular Rate and Rhythm Respiratory: Yes: Regular, CTA Bilaterally Gastrointestinal: Yes: Normal Bowel Sounds, Soft, Abdomen, Obese, Palpable Mass (port palpable beneath scar just above umbilicus), Tenderness (LUQ without rebound or guarding, referred from RUQ and epigastric to LUQ; mild LLQ), Other ( healed laparoscopic scars). No: Tenderness, Rebound ...Rectal Exam: Yes: Deferred Renal/: No: CVA Tenderness - Left, CVA Tenderness - Right Musculoskeletal: No: Joint Stiffness, Joint Swelling Extremities: No: Cool, Cyanosis Edema: No Peripheral Pulses WNL: Yes Integumentary: No: Jaundice, Rash Neurological: Yes: Alert, Oriented Psychiatric: Yes: Alert, Oriented Labs: CBC, BMP 10/22/18 06:30 10/22/18 06:30 CMP Sodium 143 mmol/L (136-145) 10/22/18 06:30 Potassium 4.2 mmol/L (3.5-5.1) 10/22/18 06:30 Chloride 110 mmol/L (98-107) H 10/22/18 06:30 Carbon Dioxide 26 mmol/L (21-32) 10/22/18 06:30 Anion Gap 7 MMOL/L (8-16) L 10/22/18 06:30 BUN 13 mg/dL (7-18) 10/22/18 06:30 Creatinine 0.7 mg/dL (0.55-1.3) 10/22/18 06:30 Creat Clearance w eGFR > 60 (>60) 10/22/18 06:30 Random Glucose 77 mg/dL (74-106) 10/22/18 06:30 Calcium 8.4 mg/dL (8.5-10.1) L 10/22/18 06:30 Phosphorus 3.5 mg/dL (2.5-4.9) 10/22/18 06:30 Magnesium 2.2 mg/dL (1.8-2.4) 10/22/18 06:30 Total Bilirubin 0.5 mg/dL (0.2-1) 10/22/18 06:30 AST 16 U/L (15-37) 10/22/18 06:30 ALT 22 U/L (13-61) 10/22/18 06:30 Alkaline Phosphatase 76 U/L (45-117) 10/22/18 06:30 Total Protein 6.7 g/dl (6.4-8.2) 10/22/18 06:30 Albumin 3.2 g/dl (3.4-5.0) L 10/22/18 06:30 Triglycerides 134 mg/dL (0-150) 10/21/18 18:44 Cholesterol 242 mg/dL (50-200) H 10/21/18 18:44 Total LDL Cholesterol 164 mg/dL (5-100) H 10/21/18 18:44 HDL Cholesterol 51 mg/dL (40-60) 10/21/18 18:44 Lipase 253 U/L (73-393) 10/22/18 06:30 lipase down from 550 Urine Test Results Urine Color Straw 10/22/18 04:25 Urine Appearance Clear 10/22/18 04:25 Urine pH 7.0 (5.0-8.0) 10/22/18 04:25 Ur Specific [place] 1.009 (1.010-1.035) L 10/22/18 04:25 Urine Protein Negative (NEGATIVE) 10/22/18 04:25 Urine Glucose (UA) Negative (NEGATIVE) 10/22/18 04:25 Urine Ketones Negative (NEGATIVE) 10/22/18 04:25 Urine Blood Negative (NEGATIVE) 10/22/18 04:25 Urine Nitrite Negative (NEGATIVE) 10/22/18 04:25 Urine Bilirubin Negative (<2.0 mg/dL) 10/22/18 04:25 Ur Leukocyte Esterase Negative (NEGATIVE) 10/22/18 04:25 Ur Epithelial Cells Moderate /HPF (FEW) 10/21/18 17:09 Urine Bacteria Rare /hpf (NONE SEEN) 10/21/18 17:09 Urine Mucus Rare 10/21/18 17:09 Imaging - Results Cat Scan: Report Reviewed, Image Reviewed (images reviewed - pancreas without inflammatory changes, + gallstones, no obstruction, free air or fluid, no clear source for pain identified) Other: Report Reviewed (EGD report reviewed and pictures seen - no apparent abnormality ascribed to lap band, biopsies pending for H. pylori), Image Reviewed Problem List - Problems (1) LUQ pain Assessment/Plan: tolerating diet - advised smaller, more frequent meals mild constipation would avoid narcotics no NSAIDS for 3 days per GI recommended pt to f/u with her bariatric surgeon and/or another of her choice she may want CD of CT to take with her f/u H. pylori biopsies unclear etiology for left sided pain, but not from gallbladder (or pancreas) pathology not tender directly over costal margin or ribs like she is in LUQ referred from mid and right side - possibly related to adhesions from band? or tubing? (which coils on left side of abdomen on CT) no obstruction, no acute surgical issues identified will sign off from surgical standpoint Thank you for the opportunity to participate in the care of this patient. call with further questions Code(s): R10.12 - LEFT UPPER QUADRANT PAIN (2) Epigastric abdominal pain Code(s): R10.13 - EPIGASTRIC PAIN (3) Hx of laparoscopic gastric banding Code(s): Z98.84 - BARIATRIC SURGERY STATUS (4) Morbid obesity with BMI of 40.0-44.9, adult Code(s): E66.01 - MORBID (SEVERE) OBESITY DUE TO EXCESS CALORIES; Z68.41 - BODY MASS INDEX (BMI) 40.0-44.9, ADULT
[2018-10-22] MEDS ORDERED: ATORVASTATIN CA 10 MG TABLET (FP) PO SCH (22:00)
[2018-10-23] MEDS ORDERED: ONDANSETRON 4 MG/2 ML VIAL IVPUSH ONE (00:50)
[2018-10-23] MEDS: ACETAMINOPHEN 325 MG TABLET (FP) PO PRN ×2 (06:22→12:47)
[2018-10-23 06:59] LABS: HEMATOCRIT 33.2 % (32.4-45.2); HEMOGLOBIN 11.1 GM/dL (10.7-15.3); MCH 26.4 pg (25.7-33.7); MCHC 33.5 g/dl (32.0-36.0); MEAN CELL VOLUME 78.9 fl (80-96); MEAN PLT VOLUME 8.6 fl (7.5-11.1); PLATELET COUNT 276 K/MM3 (134-434); RBC 4.21 M/mm3 (3.60-5.2); RDW 13.6 % (11.6-15.6); WHITE BLOOD COUNT 6.1 K/mm3 (4.0-10.0)
[2018-10-23 07:22] LABS: ANION GAP 4 MMOL/L (8-16); BLOOD UREA NITROGEN 10 mg/dL (7-18); CALCIUM 8.4 mg/dL (8.5-10.1); CHLORIDE 105 mmol/L (98-107); CO2 31 mmol/L (21-32); CREATININE 0.8 mg/dL (0.55-1.3); GLUCOSE,RANDOM 80 mg/dL (74-106); MAGNESIUM 2.3 mg/dL (1.8-2.4); PHOSPHOROUS 4.2 mg/dL (2.5-4.9); POTASSIUM 4.1 mmol/L (3.5-5.1); SODIUM 140 mmol/L (136-145)
--- NOTE | 2018-10-23 08:22 | PN ---
Teaching Attending Note Name of Resident: Kassy Lindo ATTENDING PHYSICIAN STATEMENT I saw and evaluated the patient. I reviewed the resident's note and discussed the case with the resident. I agree with the resident's findings and plan as documented. SUBJECTIVE: Patient is feeling better with no acute distress, no shortness of breath.m OBJECTIVE: Vital Signs Temperature 98.3 F 10/23/18 05:00 Pulse Rate 65 10/23/18 05:00 Respiratory Rate 18 10/23/18 05:00 Blood Pressure 119/65 10/23/18 05:00 O2 Sat by Pulse Oximetry (%) 100 10/22/18 23:00 GENERAL: The patient is awake, alert, and fully oriented, in no acute distress. HEAD: Normal with no signs of trauma. EYES: PERRLA, EOMI, sclera anicteric, conjunctiva clear. ENT: Ears normal, oropharynx clear without exudates, moist mucous membranes. NECK: Trachea midline, full range of motion, supple. LUNGS: Breath sounds equal, clear to auscultation bilaterally. HEART: Regular rate and rhythm, S1, S2 without murmur, rub or gallop. ABDOMEN: Soft, LUQ tenderness, nondistended, normoactive bowel sounds, no masses appreciated. EXTREMITIES: 2+ pulses, warm, well-perfused, no edema. NEUROLOGICAL: Cranial nerves II through XII grossly intact. Normal speech, gait not observed. PSYCH: Normal mood, normal affect. SKIN: Warm, dry, normal turgor, no rashes or lesions noted CBCD WBC 6.1 K/mm3 (4.0-10.0) 10/23/18 06:00 RBC 4.21 M/mm3 (3.60-5.2) 10/23/18 06:00 Hgb 11.1 GM/dL (10.7-15.3) 10/23/18 06:00 Hct 33.2 % (32.4-45.2) 10/23/18 06:00 MCV 78.9 fl (80-96) L 10/23/18 06:00 MCHC 33.5 g/dl (32.0-36.0) 10/23/18 06:00 RDW 13.6 % (11.6-15.6) 10/23/18 06:00 Plt Count 276 K/MM3 (134-434) 10/23/18 06:00 MPV 8.6 fl (7.5-11.1) 10/23/18 06:00 CMP Sodium 140 mmol/L (136-145) 10/23/18 06:00 Potassium 4.1 mmol/L (3.5-5.1) 10/23/18 06:00 Chloride 105 mmol/L (98-107) 10/23/18 06:00 Carbon Dioxide 31 mmol/L (21-32) 10/23/18 06:00 Anion Gap 4 MMOL/L (8-16) L 10/23/18 06:00 BUN 10 mg/dL (7-18) 10/23/18 06:00 Creatinine 0.8 mg/dL (0.55-1.3) 10/23/18 06:00 Creat Clearance w eGFR > 60 (>60) 10/23/18 06:00 Random Glucose 80 mg/dL (74-106) 10/23/18 06:00 Calcium 8.4 mg/dL (8.5-10.1) L 10/23/18 06:00 Total Bilirubin 0.5 mg/dL (0.2-1) 10/22/18 06:30 AST 16 U/L (15-37) 10/22/18 06:30 ALT 22 U/L (13-61) 10/22/18 06:30 Alkaline Phosphatase 76 U/L (45-117) 10/22/18 06:30 Total Protein 6.7 g/dl (6.4-8.2) 10/22/18 06:30 Albumin 3.2 g/dl (3.4-5.0) L 10/22/18 06:30 Current Medications Generic Name Dose Route Start Last Admin Trade Name Freq PRN Reason Stop Dose Admin Acetaminophen 650 mg 10/22/18 15:49 10/23/18 06:22 Tylenol - PO 650 mg Q6H PRN Administration PAIN OR FEVER Atorvastatin Calcium 10 mg 10/22/18 22:00 10/22/18 22:55 Lipitor - PO 10 mg HS YOBANI Administration Enoxaparin Sodium 40 mg 10/22/18 10:00 10/22/18 10:34 Lovenox - SQ Not Given DAILY YOBANI Lactated Ringer's 1,000 ml in 1,000 mls @ 100 mls/hr 10/22/18 16:38 10/22/18 22:54 Lactated Ringers Solution IV 100 mls/hr ASDIR YOBANI Administration Nebivolol 5 mg 10/22/18 10:00 10/22/18 15:34 Bystolic - PO 5 mg DAILY YOBANI Administration Home Medications Medication Instructions Recorded Nebivolol [Bystolic -] 5 mg PO DAILY 05/23/16 Pravastatin Sodium [Pravachol -] 40 mg PO HS 10/21/18 Acetaminophen [Tylenol .Regular 650 mg PO Q6H PRN #0 tablet 10/23/18 Strength -] CT AP: Cholelithiasis. No pancreatitis or acute pathology within abdomen/pelvis. ASSESSMENT AND PLAN: Patient is a 53 year old female with PMHx of HTN and HLD, presented with intermittent episodes of epigastric/LUQ pain x 1 month. #Abdominal pain: s/p EGD done for further intraluminal evaluation, Esophagus, Stomach and duodenal mucosa appeared normal. Biopsy (h.pylori is pending). GI (Dr. Feliciano) and surgical consult( Dr. Coon) Recommendations appreciated. Avoid NSAIDs. Lipase trended down 550 --> 253. Patient needs to follow up with her Bariatric MD for further care for possible adhesions. Discussed with the patient in detail. #Hypertension continue Bystolic 5mg daily. monitor BP #Hyperlipidemia: Lipitor per hospital formulary instead of Pravastatin 40mg daily. will discharge the patient home.
[2018-10-23] MEDS: NEBIVOLOL 5 MG TABLET (FP) PO SCH (09:19)
[2018-10-23] MEDS: ENOXAPARIN NA (PORCINE) 40 MG/0.4 ML DISP.SYRIN SQ SCH (09:19)
[2018-10-23] MEDS ORDERED: LIDOCAINE 5% TOPICAL PATCH TP ONE (09:56)
--- NOTE | 2018-10-23 09:57 | PN ---
GI Progress Note - Objective Vital Signs: Vital Signs Temperature 98.3 F 10/23/18 05:00 Pulse Rate 65 10/23/18 05:00 Respiratory Rate 18 10/23/18 05:00 Blood Pressure 119/65 10/23/18 05:00 O2 Sat by Pulse Oximetry (%) 100 10/22/18 23:00 Labs: CBC, BMP 10/23/18 06:00 10/23/18 06:00 Problem List - Problems (1) Abdominal pain Code(s): R10.9 - UNSPECIFIED ABDOMINAL PAIN Qualifiers: Abdominal location: generalized Qualified Code(s): R10.84 - Generalized abdominal pain
--- NOTE | 2018-10-23 10:19 | PN ---
GI Progress Note Subjective: No acute events Had some abdominal cramps this m orning that improved after BM. Did not have BM yesterday after EGD. Left side positional pain persists - Objective Vital Signs: Vital Signs Temperature 98.3 F 10/23/18 05:00 Pulse Rate 65 10/23/18 05:00 Respiratory Rate 18 10/23/18 05:00 Blood Pressure 119/65 10/23/18 05:00 O2 Sat by Pulse Oximetry (%) 100 10/22/18 23:00 Constitutional: Calm Eyes: Yes: Sclera Icterus Cardiovascular: Yes: Regular Rate and Rhythm Respiratory: Yes: CTA Bilaterally Gastrointestinal Inspection: No: Distention ...Auscultate: Yes: Normoactive Bowel Sounds ...Palpate: Yes: Tenderness (TTP left upper flank, along left lower ribs) ...Percussion: No: Tympanitic Edema: No (No LE edema) Neurological: Yes: Alert Labs: CBC, BMP 10/23/18 06:00 10/23/18 06:00 Problem List - Problems (1) Abdominal pain Assessment/Plan: CT and EGD findings do not explain positional left sided pain. ? somatic in etiology, ? if related to adhesions from lap band - Ordered Lidoderm patch and evaluation for alternate etiology of somatic pain per primary team - Outpatient follow-up with Bariatric surgeon - F/U EGD path - F/U with her lye peel operator Dr. Juvenal Daly as outpatient. Code(s): R10.9 - UNSPECIFIED ABDOMINAL PAIN Qualifiers: Abdominal location: generalized Qualified Code(s): R10.84 - Generalized abdominal pain
--- NOTE | 2018-10-23 14:09 | DS ---
Physical Exam: SUBJECTIVE: Patient seen and examined at bedside this morning. No acute events overnight. Patient still reports LUQ pain, unsure what's aggravating it, reports minimal improvement with TYlenol. Denies fever, chills, nausea, vomiting , headache, dizziness, chest pain, SOB, diarrhea, urinary symptoms. OBJECTIVE: Vital Signs Temperature 98.8 F 10/23/18 09:00 Pulse Rate 65 10/23/18 09:00 Respiratory Rate 18 10/23/18 09:00 Blood Pressure 124/72 10/23/18 09:00 O2 Sat by Pulse Oximetry (%) 100 10/22/18 23:00 PHYSICAL EXAM GENERAL: The patient is awake, alert, and fully oriented, in no acute distress. HEAD: Normal with no signs of trauma. EYES: PERRLA, EOMI, sclera anicteric, conjunctiva clear. ENT: Ears normal, nares patent, oropharynx clear without exudates, moist mucous membranes. NECK: Trachea midline, full range of motion, supple. LUNGS: Breath sounds equal, clear to auscultation bilaterally. HEART: Regular rate and rhythm, S1, S2 without murmur, rub or gallop. ABDOMEN: Soft, +epigastric/LUQ tenderness, nondistended, normoactive bowel sounds, no guarding, no rebound, no hepatosplenomegaly, no masses. EXTREMITIES: 2+ pulses, warm, well-perfused, no edema. NEUROLOGICAL: Cranial nerves II through XII grossly intact. Normal speech, gait not observed. PSYCH: Normal mood, normal affect. SKIN: Warm, dry, normal turgor, no rashes or lesions noted LABS Laboratory Results - last 24 hr 10/23/18 10/23/18 06:00 06:00 WBC 6.1 RBC 4.21 Hgb 11.1 Hct 33.2 MCV 78.9 L MCH 26.4 MCHC 33.5 RDW 13.6 Plt Count 276 MPV 8.6 Sodium 140 Potassium 4.1 Chloride 105 Carbon Dioxide 31 Anion Gap 4 L BUN 10 Creatinine 0.8 Creat Clearance w eGFR > 60 Random Glucose 80 Calcium 8.4 L Phosphorus 4.2 Magnesium 2.3 -CT AP: Cholelithiasis. No pancreatitis or acute pathology within abdomen/ pelvis. HOSPITAL COURSE: Date of Admission:10/21/18 Date of Discharge: 10/23/18 Patient is a 53 year old female with past medical history of HTN and HLD, presented with intermittent episodes of epigastric/LUQ pain for 1 month. GI and surgery were consulted. CT scan showed cholelithiasis and no other acute pathology. EGD was done where the esophagus, stomach and duodenal mucosa appeared normal. Biopsy done. Patient was given Tylenol for the pain. She was discharged with instructions to follow up with her PCP, GI doctor and bariatric surgeon. Minutes to complete discharge: 36 Discharge Summary Reason For Visit: SYMPTOMATIC CHOLEITHIASIS Current Active Problems Cholelithiasis (Acute) Epigastric abdominal pain (Acute) Hx of laparoscopic gastric banding (Acute) LUQ pain (Acute) Morbid obesity with BMI of 40.0-44.9, adult (Acute) Condition: Stable - Instructions Diet, Activity, Other Instructions: Your visit You were admitted to the hospital because you had belly pain. You were seen by the scientific diver and you had endoscopy was done which was negative of any concerns. Biopsy was done. Please follow-up with the scientific diver to discuss the results. Care -Avoid NSAIDs such as ibuprofen, celebrex for 3 days. -Have a low fat diet. Take smaller, more frequent meals. -Drink plenty of water. Medications Continue your home medications. You may take Tylenol 650mg every 6 hours as needed for pain. Follow-up -Follow-up with your primary care doctor (Dr. Kearney) within 1 week. -Follow-up with your scientific diver (Dr. Daly) within 2 weeks to discuss biopsy results. -Please follow-up with your bariatric surgeon within 1 week. Additional info Call 911 or go to the ED if with any worsening fever, chills, headache, dizziness, nausea, vomiting, chest pain, shortness of breath, abdominal pain, diarrhea, bloody stools or any new concerns noted. Referrals: Stefany Kearney [Primary Care Provider] - 1 Week Donato Feliciano DO [Staff Physician] - Juvenal Daly MD [Non Staff, Medical] - Disposition: HOME - Home Medications Comprehensive Discharge Medication List: Ambulatory Orders Nebivolol [Bystolic -] 5 mg PO DAILY 05/23/16 Pravastatin Sodium [Pravachol -] 40 mg PO HS 10/21/18 Acetaminophen [Tylenol .Regular Strength -] 650 mg PO Q6H PRN #0 tablet Acetaminophen [Tylenol .Regular Strength -] 650 mg PO Q6H PRN #15 tablet Famotidine [Pepcid] 20 mg PO DAILY #14 tablet 10/23/18 This patient is new to me today: No Emergency Visit: Yes ED Registration Date: 10/21/18 Care time: The patient presented to the Emergency Department on the above date and was hospitalized for further evaluation of their emergent condition. Critical Care patient: No - Discharge Referral Referred to [facility] Med P.C.: No
[2018-10-23 14:54] VITALS: BP 117/67; PULSE 70; TEMP 98.6
[2018-10-23] MEDS ORDERED: LIDOCAINE PATCH REMOVAL MC ONE (22:00)
--- NOTE | 2018-10-26 15:51 | PATH ---
Surgical Pathology Report Patient Name: BEE WYNN Med. Rec. #: [id number] /Age/Gender: 1965 (Age: 53) / F Account: [id number] Location: [facility] MED/SURG Taken: 10/22/2018 Received: 10/23/2018 Reported: 10/26/2018 Physicians: Elizabeth White M.D. Specimen(s) Received BX ANTRUM AND BODY Clinical History Abdominal pain Postoperative diagnosis: Lap band anatomy, abdominal pain Final Diagnosis ANTRUM AND BODY, BIOPSY: GASTRIC MUCOSA WITH MILD CHRONIC GASTRITIS. IMMUNOSTAIN FOR H. PYLORI IS NEGATIVE. NEGATIVE FOR INTESTINAL METAPLASIA. Electronically Signed Spring Berrios M.D. Gross Description Received in formalin labeled "biopsy antrum and body," are 3 beach soft tissue fragments ranging from 0.3-0.7 cm in greatest dimension. The specimens are submitted in toto in one cassette. 10/23/201810/23/2018
== END 2018-10-23 15:45 | disposition home or self-care (01) ==
LOC: JER 15:54 → JERBED 21:08 → J7W 10-22 02:48
PROVIDERS: ADMIT Internal Medicine; ATTEND Internal Medicine
PROC: 0DB68ZX Excision of Stomach, Via Natural or Artificial Opening Endoscopic, Diagnostic (ICD-10-PCS; principal; 2018-10-21)
PROC: 3E033GC Introduction of Other Therapeutic Substance into Peripheral Vein, Percutaneous Approach (ICD-10-PCS; 2018-10-21)
PROC: 3E0337Z Introduction of Electrolytic and Water Balance Substance into Peripheral Vein, Percutaneous Approach (ICD-10-PCS; 2018-10-21)
PROC: 3E013GC Introduction of Other Therapeutic Substance into Subcutaneous Tissue, Percutaneous Approach (ICD-10-PCS; 2018-10-21)
DX: K80.20 Calculus of gallbladder without cholecystitis without obstruction (principal); R10.84 Generalized abdominal pain; R10.13 Epigastric pain; R10.12 Left upper quadrant pain; I10 Essential (primary) hypertension; E78.5 Hyperlipidemia, unspecified; R74.8 Abnormal levels of other serum enzymes; Z98.84 Bariatric surgery status; E66.01 Morbid (severe) obesity due to excess calories; Z68.41 Body mass index [BMI] 40.0-44.9, adult
CPT/HCPCS: 36415; 74177-TC; 80048; 80053; 80061; 81003; 81015; 83690; 83721; 83735; 84100; 84703; 85025; 85027; 87086; 88305-TC; 88342-TC; 93005; 93010; 99285-25; G0378; J7030